=== PATIENT | female | born 2005 | race Two or more races ===

== ENCOUNTER 2024-10-09 22:39 | Emergency (ER) | payer OTHER ==
[~2024-10-09] VITALS: Ht 160 cm; Wt 59.0 kg
[2024-10-09 22:47] VITALS: BP 122/70; O2SAT 100
[2024-10-10] MEDS ORDERED: ACETAMINOPHEN 500 MG GEL..CAP PO STA (01:38)
[2024-10-10 02:08] LABS: HEMOGLOBIN 12.9 g/dL (12.0-15.00); MEAN CELL VOLUME 85.4 fL (80.00-100.00); MEAN CORPUSCULAR HEMOGLOBIN 28.3 pg (27.00-32.0); MEAN CORPUSCULAR HGB CONC 33.2 g/dl (32.0-36.0); PLATELET COUNT 254 K/uL (150-450); RED BLOOD COUNT 4.57 M/uL (4.00-6.00); RED CELL DISTRIBUTION WIDTH 14.4 % (11.5-14.5)
[2024-10-10 02:42] LABS: URINE APPEARANCE Clear; URINE BILIRRUBIN Negative (NEGATIVE); URINE BLOOD Large; URINE COLOR Yellow; URINE GLUCOSE Negative (NEGATIVE); URINE LEUKOCYTE Negative; URINE NITRATE Negative; URINE PROTEIN Negative (NEGATIVE)
[2024-10-10 02:46] LABS: INR 0.99; PARTIAL THROMBOPLASTIN TIME 30.2 SECONDS (22.0-34.0); PROTHROMBIN TIME 10.8 SECONDS (9.0-11.5)
[2024-10-10 02:46] LABS: URINE BACTERIA 1676.8 uL (0.0-1933); URINE EPITHELIAL CELLS 43.6 uL (0.0-38.8); URINE RBC 7.3 uL (0.0-20.8); URINE WBC 24.8 uL (0.0-23.2)
[2024-10-10 03:13] LABS: URINE KETONE 40 (NEGATIVE)
[2024-10-10 03:17] LABS: CALCIUM 9.5 mg/dL (8.5-10.1); CREATININE SERUM 0.79 mg/dL (0.55-1.02); GFR 92.78; POTASSIUM 3.6 mEq/L (3.5-5.1)
== END 2024-10-10 06:01 ==
LOC: ER 22:39
PROVIDERS: General Practice
DX: O20.8 Other hemorrhage in early pregnancy (principal); Z3A.01 Less than 8 weeks gestation of pregnancy